=== PATIENT | male | born 1995 | race Caucasian/White ===

== ENCOUNTER 2018-09-20 13:33 | Outpatient (CLI) | payer OTHER ==
--- NOTE | 2018-09-20 17:55 | ULT ---
ULTRASOUND TESTICULAR WITH DOPPLER: HISTORY: Left-sided inguinal pain. COMPARISON: None. FINDINGS: There is normal background testicular echotexture and vascularity. No mass is appreciated. Multiple small right epididymal cysts. The right testicle measures 4.7 x 3 x 2.5 cm and the left testicle me asures 4.7 x 3.1 x 2.7 cm. Multiple small left epididymal cysts are also present. Possible hernia of the left inguinal canal. IMPRESSION: Possible hernia of the left inguinal canal for which a CT abdomen and pelvis would be recommended. POS: DIANNE
== END 2018-09-20 13:34 | disposition home or self-care (01) ==
LOC: ULT 13:33
PROVIDERS: ATTEND Family Medicine
DX: R10.32 Left lower quadrant pain (principal)
CPT/HCPCS: 76870; 85025; 93976